=== PATIENT | female | born 1985 | race Caucasian/White ===

== ENCOUNTER → 2021-04-14 | Day surgery (SDC) | payer OTHER ==
[~2021-04-14] MED LIST: BRIDION 200MG/2ML IV ONE; DIPRIVAN 200 MG/20 ML IV ONE; Decadron 4 MG INJ ONE; Lactated Ringers 1,000 ML IV SCH; Levofloxacin 500MG/100ML D5W 500 MG/100 ML BAG IV ONE; SUBLIMAZE 100 MCG/2 ML ONE; SUBLIMAZE 250 MCG/5 ML ONE; Sensorcaine 0.25% 10 ML ONE; TORAdol 30 mg Injection ONE; Versed 2 MG/2 ML Injection ONE; Zemuron 100 MG/10 ML ONE; Zofran 4 MG/2 ML VIAL ONE
[2021-04-14 15:06] VITALS: O2SAT 94
[2021-04-14 15:23] VITALS: BP 150/90
[2021-04-14 15:40] VITALS: PULSE 74
--- NOTE | 2021-04-15 08:04 | OP ---
PROCEDURE DATE/TIME: 04/14/2021 1055 PREOPERATIVE DIAGNOSIS: BRCA-positive with high risk for breast and ovarian cancer. POSTOPERATIVE DIAGNOSIS: BRCA-positive with high risk for breast and ovarian cancer and left ovarian cyst. PROCEDURE: Laparoscopic bilateral salpingo-oophorectomy with pelvic washing. PROCEDURE PERFORMED BY: Mami Mac M.D. COMPLICATIONS: None. ESTIMATED BLOOD LOSS: Minimal less than 10 cc. ANESTHESIA: General. SPECIMENS: 1) Left salpingo-oophorectomy. 2) Right salpingo-oophorectomy. 3) Pelvic washing. HISTORY: This is a 35-year-old female who presents for bilateral salpingo-oophorectomy prophylactically due to BRCA-positive genetic testing. Risks, benefits, alternatives have been discussed with the patient preoperatively. She understands, agrees and would like to proceed. Her test was negative. She understands that this is not reversible. I have answered all of the questions. We have re-reviewed her H&P. We reviewed the consent and confirmed everything together. DESCRIPTION OF PROCEDURE: She was then brought back to the operative suite. Anesthesia induced. Prepped and draped in the usual sterile fashion. Complete time out performed. First, a periumbilical incision was made inferiorly through skin and then we dissected down to the fascia. The fascia grasped with an Allis and carefully elevated. The peritoneal cavity was then entered using a Veress needle without issue. Good initial insufflatory pressure. Abdomen insufflated very easily and evenly. The 5 mm optical port was placed at the same site under direct visualization after full insufflation to 15 was completed. There were no injuries identified. 5 ports were placed laterally on both sides both under visualization. The midline port was upsized to a 12 port under visualization. A surveillance of the abdomen was done. The peritoneal cavity lining is smooth. There are no masses. The surface of the liver that is visible is normal. The surface of the colon and the bowel that is visible is normal. The uterus may have a small fibroid consistent with her ultrasound but this is very subtle at the uterine fundus. The left ovary appeared to have a small benign appearing cyst. The right ovary appeared to be normal. At this point we then clearly identified our anatomy. Broad ligaments were identified on both sides. The ovarian vein was identified on both sides. The ureter was identified on both sides. The ureter is slightly deep but we were able to gently palpate it on both sides and visualize this. Once this was done, we then carefully freed a plane between the tube and the round ligament. We completely isolated the ovary and the entire fallopian tube. Used an Ethicon white load stapler to take the ovarian vein. We continued stapling alongside the attachments of the fallopian tube insuring to remove the entire fallopian tube and we took this to the free area adjacent to the round ligament onto the uterus. We then stapled the fallopian tube off of the uterus again with the white load stapler insuring that the entire ovary and fallopian tube were removed and this was done on both sides. After each side we placed the ovary immediately into a laparoscopic bag with the attached fallopian tube and this was carefully extracted through the umbilical port. We did not have any spillage of any of the ovarian contents into the abdomen whatsoever. The ovaries were completely contained in the bag and then a new bag was placed once we switched to the other side. Each ovary and tube were taken out in the same fashion and sent to pathology separately. Prior to taking off the ovaries, I did suction some bloody fluid from her cul-de-sac this appeared consistent with her age and menstruation status this was suctioned free. We then did further pelvic washings and suctioned this and sent this all for cytology to insure negative cytology. Again grossly everything looked negative. After completion of the bilateral salpingo-oophorectomy, we checked all of our staple lines. There was no bleeding. Everything looked satisfactory. We then closed the infraumbilical port with interrupted 0 Vicryl suture. We then desufflated and removed our two remaining 5-ports. Irrigated and closed with buried 4-0 Monocryl interrupted stitch, Steri-Strips and sterile dressing. The patient tolerated the procedure very well. There were no immediate complications. I checked her in recovery and she is doing very well. Tentative plan is to discharge home today. We have discussed all of her instructions with her family, her , after the procedure as well as with the patient.
== END ==
LOC: SDC 07:22
PROVIDERS: ATTEND Surgery
DX: Z15.02 Genetic susceptibility to malignant neoplasm of ovary (principal); Z15.01 Genetic susceptibility to malignant neoplasm of breast; Z79.899 Other long term (current) drug therapy
CPT/HCPCS: 84703; 93005; J1100; J1885; J1956; J2250; J2405; J2704; J3010